=== PATIENT | female | born 1985 | race Caucasian/White ===

== ENCOUNTER 2022-06-20 19:28 | Emergency (ER) | payer OTHER, SELFPAY ==
[2022-06-20 20:01] VITALS: BP 119/94; PULSE 107; RESP 18; TEMP 37.3; O2SAT 97
[2022-06-21] VITALS (13 sets, daily range): BP systolic 103–113; BP diastolic 61–67; PULSE 99; RESP 16; TEMP 36.7; O2SAT 94–100
--- NOTE | 2022-06-21 00:58 | ED.FEVER ---
HPI - Fever General Chief Complaint: Fever <Lazaro Amaya PA-C - Last Filed: 06/21/22 02:59> Stated Complaint: fever, tachycardia <Lazaro Amaya PA-C - Last Filed: 06/21/22 02:59> Time Seen by Provider: 06/21/22 00:26 <Lazaro Amaya PA-C - Last Filed: 06/21/22 02:59> Source: patient <ELOY Hartmann Last Filed: 06/21/22 02:59> Mode of arrival: ambulatory <ELOY Hartmann Last Filed: 06/21/22 02:59> Limitations: no limitations <ELOY Hartmann Last Filed: 06/21/22 02:59> History of Present Illness HPI Narrative: This is a 36-year-old female presents to the ED with chief complaint of suprapubic pain x2 days. Patient states she had a fever that also started yesterday. She reports Tmax of 103 at home. She was seen at urgent care earlier tonight and was sent over for continued fever and tachycardia. States they did a urine test and STD tests and those were negative. Describes the pain as a dull pressure and rated at 3 out of 10. States the pain does not radiate. endorses body aches but attributes this to recent jet skiing. Also describes 1 episode with stools. Denies hematuria, frequency, dysuria. Denies chest pain, shortness of breath, nausea, vomiting, flank pain, cough, congestion. Vitals show temperature of 99.1, states she took Tylenol at urgent care prior to coming here. LNMP last week. <Lazaro Amaya PA-C - Last Filed: 06/21/22 02:59> This is a 36-year-old female presents to the ED with chief complaint of suprapubic pain x2 days. Patient states she had a fever that also started yesterday. She reports Tmax of 103 at home. She was seen at urgent care earlier tonight and was sent over for continued fever and tachycardia. States they did a urine test and STD tests and those were negative. Describes the pain as a dull pressure and rated at 3 out of 10. States the pain does not radiate. endorses body aches but attributes this to recent jet skiing. Also describes 1 episode with stools. Denies hematuria, frequency, dysuria. Denies chest pain, shortness of breath, nausea, vomiting, flank pain, cough, congestion. Vitals show temperature of 99.1, states she took Tylenol at urgent care prior to coming here. LMP last week. <Kenn Lea MD - Last Filed: 06/25/22 07:26> Related Data Allergies/Adverse Reactions: Allergies Allergy/AdvReac Type Severity Reaction Status Date / Time No Known Allergies Allergy Unverified 04/18/17 01:41 <Lazaro Amaya PA-C - Last Filed: 06/21/22 02:59> Review of Systems Review of Systems: CONSTITUTIONAL: See HPI EYES: Denies visual changes, redness, or discharge. ENT: Denies rhinorrhea, congestion, sore throat, or otalgia. CARDIOVASCULAR: Denies chest pain, palpitations, or edema. RESPIRATORY: Denies cough or dyspnea. GASTROINTESTINAL: See HPI GENITOURINARY: Denies dysuria or hematuria. SKIN: Denies rash or itching. MUSCULOSKELETAL: Denies back pain, joint pain, or myalgia. NEUROLOGIC: Denies headache, numbness, dizziness, or weakness. PSYCHIATRIC: Denies anxiety or depression. <Lazaro Amaya PA-C - Last Filed: 06/21/22 02:59> Exam Narrative: GENERAL: Well-appearing, well-nourished, and in no acute distress. HEAD: Normocephalic, atraumatic. EYES: PERRLA and EOMI. ENT: Nares clear, no rhinorrhea or epistaxis. Mucous membranes moist. Oropharynx without tonsillar hypertrophy exudate or other lesions. NECK: Supple. No adenopathy or masses. CHEST: No respiratory distress. Clear to auscultation. No wheezes rales or rhonchi HEART: Regular rate and rhythm. No murmur heard. Normal peripheral pulses. ABDOMEN: Negative flank tenderness. Soft, nontender, nondistended, normal active bowel sounds. EXTREMITIES: Normal range of motion. No edema. SKIN: Warm, dry, no rash. NEURO: Alert and oriented x3. No focal deficits. PSYCH: Normal mood and affect. Pelvic exam done with female nurse rn practitioner present: Negative f
[2022-06-21] MEDS: SODIUM CHLORIDE 0.9% IV 1,000 ML 999 ML IV CONT (01:12)
[2022-06-21 01:18] LABS: Basophils Percent Auto 0.3 % (0.2-1.2); Hematocrit 38.6 % (37.0-47.0); Immature Granulocyte Absolute 0.03 K/mm3 (0.00-0.031); Immature Granulocyte Percent A 0.3 % (0-0.5); Lymphocytes Absolute Auto 0.56 K/mm3 (0.9-3.2); Lymphocytes Percent Auto 5.5 % (18.3-44.2); Mean Corpuscular HGB Conc 33.7 g/dl (32-36); Mean Corpuscular Hemoglobin 31.4 pg (26-34); Mean Corpuscular Volume 93.2 fl (80-100); Mean Platelet Volume 9.6 fl (7.4-10.4); Monocytes Absolute Auto 0.3 K/mm3 (0.1-0.6); Monocytes Percent Auto 2.8 % (2.6-8.5); Neutrophils Absolute Auto 9.4 K/mm3 (1.3-6.7); Neutrophils Percent Auto 91.1 % (45.5-73.1); Platelet Count Result 156 k/mm3 (150-375); Red Blood Count 4.14 M/mm3 (4.2-5.4); Red Cell Distribution Width 12.9 % (11.5-14.5); White Blood Count 10.3 K/mm3 (4.5-10.0)
[2022-06-21 01:27] LABS: Alanine Aminotransferase 18 U/L (6-35); Albumin Level 4.3 g/dL (3.5-5.1); Alkaline Phosphatase 31 U/L (38-126); Anion Gap 4 mmol/L (8-16); Aspartate Amino Transferase 22 U/L (14-36); Blood Urea Nitrogen 11 mg/dL (7-17); Calcium 8.5 mg/dL (8.4-10.2); Carbon Dioxide 27 mmol/L (22-30); Chloride 102 mmol/L (98-107); Estimated CRCL calculation 109 ml/min; Estimated Glomerular Filt Rate > 60; Glucose 111 mg/dL (65-110); Potassium 3.8 mmol/L (3.4-5.0); Sodium 133 mmol/L (137-145)
[2022-06-21 01:53] LABS: Influenza A QL RT-PCR Negative (Negative); Influenza B QL RT-PCR Negative (Negative); RSV RNA, RT-PCR Negative (Negative); SARS-CoV-2 RNA PCR Negative (Negative)
[2022-06-21 02:14] LABS: Appearance Urine Clear (Clear); Bacteria Urine None Seen /hpf; Bilirubin Urine Negative (Negative); Blood Urine Negative (Negative); Color Urine Yellow (Yellow); Glucose Urine UA Negative (Negative); Ketones Urine 1+ mg/dL (Negative); Leukocyte Esterase Ur Negative LEU/UL (Negative); Nitrate Urine Negative (Negative); Non Pathogenic Casts 0-2; Protein Urine Trace mg/dL (Negative); Specific Grav Ur 1.025 (1.001-1.035); Squamous Epithelial Cell Urine Occasional /hpf (Few); WBC Urine 0-5 /hpf; pH Urine 6.5 (5.0-9.0)
[2022-06-21 02:19] LABS: Add Urine Microscopic? YES
[2022-06-21] MEDS: metroNIDAZOLE 250 MG TABLET 2000 MG PO (02:38)
[2022-06-21] MEDS: ONDANSETRON INJ 4 MG/2 ML VIAL IV PUSH (02:38)
[2022-06-21] MEDS: cefTRIAXone 1 GM VIAL 0.5 GM IVPB (02:39)
== END 2022-06-21 03:00 | disposition home or self-care (01) ==
PROVIDERS: Emergency Provider Physician Assistant; PCP Physician Assistant
DX: R10.30 Lower abdominal pain, unspecified (principal); Z20.822 Contact with and (suspected) exposure to COVID-19
CPT/HCPCS: 36415; 80053; 81001; 81025; 85025; 87070; 87255; 87491; 87591; 87637; 87808; 96361; 96365; 96374; 96375; 99284; A9270; J0696; J2405; J7030